=== PATIENT | female | born 1955 | race African-American/Black ===

== ENCOUNTER 2019-12-20 09:58 | Outpatient (CLI) | payer MEDICARE ==
--- NOTE | 2019-12-20 11:01 | CT ---
EXAM: CT NECK SOFT TISSUE POST CONTRAST: HISTORY:Nodule in the left neck, palpable. COMPARISON:None CORRELATION:None FINDINGS: Brain parenchyma: No pathologic enhancement of the visualized brain parenchyma. Sinuses: Adequate aeration of the visualized paranasal sinuses and mastoid air cells. Nasopharynx:Adequate aeration. No mucosal abnormality. Oral cavity:Aerodigestive tract is patent. No mucosal abnormality. Patient is edentulous. No obvious masses in the oral cavity. Midline fatty raphae of the tongue is preserved. Hypopharynx: No mucosal abnormality. Larynx: No mucosal abnormality. Paraspinal muscles: Symmetric attenuation of the paraspinal muscles and symmetric attenuation of the sternocleidomastoid muscles.. Parotid and salivary glands: Symmetric attenuation of the parotid and submandibular glands Thyroid gland: Unremarkable. Spine: Vertebral body height is maintained. No fracture. No significant central canal stenosis or sig nificant neural foraminal narrowing. Limited evaluation due to technique. Lymph nodes: No evidence of lymphadenopathy in the right neck. Enlarged left level 2 lymph node measu res 2.1 x 3.2 cm. Additional nonenlarged left neck lymph nodes are noted. No evidence of periclavicular lymphadenopathy. Incidentals: Fat attenuation mass is noted in the right periclavicular region. Lipoma is favored. Great vessels of the neck: Grossly the great vessels of the neck are patent technique limits evaluati on. Lung apices and upper mediastinum: Chronic lung parenchymal changes. No acute abnormality. IMPRESSION: 1. Enlarged left level 2 lymph node, corresponding to the palpable focus. Biopsy is recommended. Paul tional nonenlarged left soft tissue neck lymph nodes and right soft tissue neck lymph nodes are noted.
[2019-12-20] MEDS ORDERED: Iopamidol-370 76% 500 ML 1 ML ONE (12:54)
== END 2019-12-20 09:59 | disposition home or self-care (01) ==
LOC: BICCT 09:58
PROVIDERS: ATTEND Otolaryngology Plastic Surgery within the Head & Neck
DX: R22.1 Localized swelling, mass and lump, neck (principal); R59.0 Localized enlarged lymph nodes
CPT/HCPCS: 70491; 82565; Q9967

== ENCOUNTER 2020-01-03 08:17 | Day surgery (SDC) | payer MEDICARE ==
[2020-01-02 15:31] VITALS: BMI 30.7
[2020-01-03 10:08] LABS: #Basophils 0.1 thou/uL (0.0-0.2); #Lymphocytes 1.8 thou/uL (1.20-3.40); #Monocytes 0.4 thou/uL (0.11-0.59); %Basophils 1.5 % (0.0-1.0); %Eosinophils 0.3 % (0.0-10.0); %Lymphocytes 42.4 % (21.0-51.0); %Monocytes 9.4 % (0.0-10.0); %Neutrophils 46.4 % (42.0-75.0); Hemoglobin 12.9 g/dL (12.0-16.0); Mean Corpuscular HGB CONC 33.5 g/dL (32.0-36.0); Mean Corpuscular Hemoglobin 30.9 pg (27.0-31.0); Mean Corpuscular Volume 92.2 fL (78.0-98.0); Mean Platelet Volume 8.4 fL (7.4-10.4); Platelet Count 266 thou/uL (130-400); RBC Distribution Width 12.5 % (11.5-14.5); Red Blood Cell (RBC) Count 4.17 mill/uL (4.20-5.40); White Blood Cell (WBC) Count 4.3 thou/uL (4.8-10.8)
[2020-01-03] MEDS ORDERED: Midazolam HCl 2 mg/2 ml Vial ONE (10:25)
[2020-01-03] MEDS ORDERED: Fentanyl 100 MCG/2 ML VIAL ONE (10:25)
[2020-01-03] MEDS ORDERED: HYDROmorphone 0.5 MG/0.5 ML SYRINGE ONE (10:25)
[2020-01-03] MEDS ORDERED: Lidocaine 1% w/Epinephrine 1:100K 20 ML VIAL ONE (10:26)
[2020-01-03] MEDS ORDERED: Bacitracin Zinc Ointment 30 gm TUBE ONE (10:26)
[2020-01-03 10:29] LABS: Anion Gap 12 mmol/L (10-20); BUN (Urea Nitrogen) 15 mg/dL (9.8-20.1); Calc. Creatinine Clearance 97 mL/min (70-130); Calcium 9.8 mg/dL (7.8-10.44); Carbon Dioxide 26 mmol/L (23-31); Chloride 106 mmol/L (98-107); Estimated GFR-MDRD 89; Glucose 99 mg/dL (80-115); Potassium 3.9 mmol/L (3.5-5.1); Sodium 140 mmol/L (136-145)
[2020-01-03] MEDS ORDERED: Succinylcholine Chloride 20 MG/ML 10 ml SYRINGE FS ONE (10:40)
[2020-01-03] MEDS ORDERED: PROPOFOL 200 MG/20 ML VIAL ONE (10:40)
[2020-01-03] MEDS ORDERED: Ondansetron PF 4 MG/2 ML Vial ONE (10:40)
[2020-01-03] MEDS ORDERED: Lidocaine 1% PF 5 ML VIAL ONE (10:40)
[2020-01-03] MEDS ORDERED: EPHEDRINE 25 MG/5 ML SYRINGE ONE (10:40)
[2020-01-03] MEDS ORDERED: Dexamethasone 20 MG/5 ML VIAL ONE (10:40)
--- NOTE | 2020-01-04 12:07 | OP ---
DATE OF PROCEDURE: 01/03/2020 PREOPERATIVE DIAGNOSIS: Left cervical lymphadenopathy. POSTOPERATIVE DIAGNOSIS: Left cervical lymphadenopathy. PROCEDURE PERFORMED: Excision of deep neck lymph node 5 cm on the left. ESTIMATED BLOOD LOSS: 5 mL. COMPLICATIONS: None. ANESTHESIA: GETA. DESCRIPTION OF PROCEDURE: The patient was taken to the operating room and placed supine on the table. General endotracheal anesthesia was obtained by the Anesthesia Staff. The tube was secured in the right lower lip. Following this, the left neck was prepped and draped in standard surgical fashion. An incision was made approximately 2 cm below the angle of the mandible and dissection was carried down through skin, subcutaneous tissue, and the platysmal layer. Subplatysmal flaps were elevated superiorly and inferiorly to provide better access to this deep left level 2 area. A large conglomeration of lymph nodes was medially identified adjacent and lateral to the jugulodigastric area. The lymph nodes were removed, taking care to protect the jugular vein. Following this, the wound was irrigated. A small drain was placed. The platysmal layers were closed using 3-0 Monocryl stitches and the subcuticular layer was closed using 4-0 Monocryl stitches and Dermabond was used to closing the skin. The drain was working at the end of the procedure. Job ID: [id number]
--- NOTE | 2020-01-04 15:55 | EKG ---
Test Reason : PREOP Blood Pressure : / mmHG Vent. Rate : 065 BPM Atrial Rate : 065 BPM P-R Int : 202 ms QRS Dur : 090 ms QT Int : 420 ms P-R-T Axes : 036 -13 -11 degrees QTc Int : 436 ms Normal sinus rhythm Nonspecific T wave abnormality Borderline ECG Confirmed by SINCERE MARTINEZ ([id number]) on 01/04/2020 3:55:35 PM Referred By: Lamont CRAIG Confirmed By:SINCERE MARTINEZ
== END 2020-01-03 14:18 | disposition home or self-care (01) ==
LOC: SDC 08:17
PROVIDERS: ATTEND Otolaryngology Plastic Surgery within the Head & Neck
PROC: 07T20ZZ Resection of Left Neck Lymphatic, Open Approach (ICD-10-PCS; principal; 2020-01-03)
DX: I89.8 Other specified noninfective disorders of lymphatic vessels and lymph nodes (principal); I10 Essential (primary) hypertension; J45.909 Unspecified asthma, uncomplicated; M19.90 Unspecified osteoarthritis, unspecified site; F32.9 Major depressive disorder, single episode, unspecified; Z79.51 Long term (current) use of inhaled steroids; Z79.82 Long term (current) use of aspirin; Z79.899 Other long term (current) drug therapy; Z86.010 Personal history of colon polyps; Z88.8 Allergy status to other drugs, medicaments and biological substances; Z91.030 Bee allergy status
CPT/HCPCS: 80048; 85025; 88184; 88307; 88341; 88342; 88365; 93005; 93010; J1100; J1170; J2001; J2250; J2405; J2704; J3010

== ENCOUNTER 2022-08-26 08:55 | Outpatient (CLI) | payer MEDICARE | END 2022-08-26 08:56 | disposition home or self-care (01) | LOC: RAD 08:55 | PROVIDERS: ATTEND Internal Medicine Critical Care Medicine | DX: R06.09 Other forms of dyspnea (principal) | CPT/HCPCS: 71046 ==

== ENCOUNTER 2024-01-06 10:14 | Emergency (ER) | payer MEDICARE ==
[2024-01-06 11:18] LABS: Hematocrit 42.7 % (36.0-47.0); Hemoglobin 14.3 g/dL (12.0-16.0); Manual Diff?? YES; Mean Corpuscular HGB CONC 33.5 g/dL (32.0-36.0); Mean Corpuscular Hemoglobin 29.6 pg (27.0-31.0); Mean Corpuscular Volume 88.4 fl (78.0-98.0); Mean Platelet Volume 10.2 fL (7.4-10.4); Platelet Count 341 10x3/uL (130-400); RBC Distribution Width 13.4 % (11.5-14.5); Red Blood Cell (RBC) Count 4.83 mill/uL (4.20-5.40); White Blood Cell (WBC) Count 6.7 10x3/uL (4.8-10.8)
[2024-01-06 11:20] LABS: Delete Auto Diff?? YES
[2024-01-06 11:40] LABS: Band 2 % (5-11); CellaVision Operator ID LAB.KW3; Lymphocytes 17 % (21-51); Monocytes 8 % (0-10); Neutrophil 73 % (42-75); Platelet Adequacy Comment Platelets Normal; RBC Morphology Within Normal Limits; Total Cell Count 100
[2024-01-06 11:45] LABS: ALT (SGPT) 24 U/L (8-55); AST (SGOT) 23 U/L (5-34); Albumin 4.7 g/dL (3.4-4.8); Alkaline Phosphatase 109 U/L (40-110); Anion Gap 14 mmol/L (10-20); BUN (Urea Nitrogen) 11 mg/dL (9.8-20.1); Bilirubin, Total 0.6 mg/dL (0.2-1.2); Calc. Creatinine Clearance 0 mL/min (70-130); Calcium 9.8 mg/dL (7.8-10.44); Carbon Dioxide 25 mmol/L (23-31); Chloride 103 mmol/L (98-107); Estimated GFR 79; Globulin 3.7 g/dL (2.4-3.5); Glucose 120 mg/dL (80-115); Potassium 3.7 mmol/L (3.5-5.1); Protein, Total 8.4 g/dL (5.8-8.1); Sodium 138 mmol/L (136-145)
[2024-01-06 11:51] LABS: Troponin I Less than 0.010 ng/mL (< 0.028)
== END 2024-01-06 14:00 | disposition home or self-care (01) ==
LOC: ERS 10:14
DX: I10 Essential (primary) hypertension (principal); J44.9 Chronic obstructive pulmonary disease, unspecified; K21.9 Gastro-esophageal reflux disease without esophagitis; Z87.891 Personal history of nicotine dependence; Z79.899 Other long term (current) drug therapy
CPT/HCPCS: 36415; 70450; 71045; 80053; 84484; 85025; 93005